=== PATIENT | male | born 1990 | race Caucasian/White ===

== ENCOUNTER 2018-01-20 02:28 | Emergency (ER) | payer OTHER | END 2018-01-20 04:55 | disposition home or self-care (01) | LOC: M ED 02:28 | DX: F10.929 Alcohol use, unspecified with intoxication, unspecified (principal); F17.220 Nicotine dependence, chewing tobacco, uncomplicated; Z88.0 Allergy status to penicillin | CPT/HCPCS: 70450 ==

== ENCOUNTER 2018-01-23 13:04 | Emergency (ER) | payer OTHER | END 2018-01-23 15:56 | disposition home or self-care (01) | LOC: M ED 13:04 | DX: R51 Headache (principal); F41.9 Anxiety disorder, unspecified; Z88.0 Allergy status to penicillin | CPT/HCPCS: 99283 ==

== ENCOUNTER → 2018-10-25 | Outpatient (CLI) | payer OTHER ==
[~2018-10-25] MED LIST: ACET1TAB55 PO; FLON1SPR NARES; PSEU60TA23 PO
--- NOTE | 2018-10-25 14:28 | PFTRPT ---
Height: 66.00 Inches Weight: 160.00 Lbs BSA: 1.82 Diagnosis: SOB DATE OF PROCEDURE: 10/25/2018 ORDERED BY: TAMANNA Oro Spirometry: Study of excellent technical quality. Forced vital capacity normal. FEV1 in proportion. Obstructive index is, therefore, normal. Flow Volume Loop: Expiratory limb of the flow volume loop is normal. Lung Volumes: Total lung capacity normal. Residual volume is in proportion. Diffusing Capacity: Diffusing capacity, although minimally reduced, is appropriate for alveolar volume. Hemoglobin: No hemoglobin available for correction. Airway Mechanics: Airway resistance and conductance are normal. IMPRESSION: Minimal reduction in the absolute diffusing capacity. Please correlate clinically. MTDD
== END ==
LOC: M CARPUL 13:58
PROVIDERS: ATTEND Clinical Nurse Specialist Psychiatric/Mental Health, Adult
DX: R06.02 Shortness of breath (principal)